=== PATIENT | female | born 1990 | race Caucasian/White ===

== ENCOUNTER 2025-10-13 09:52 | Inpatient (IN) | payer BC ==
[2025-10-13] VITALS (39 sets, daily range): BP systolic 67–117; BP diastolic 34–76; TEMP 98.5–98.7; O2SAT 92–100
[~2025-10-13] VITALS: Ht 170.2 cm; Wt 101.6 kg
[2025-10-13] MEDS ORDERED: ONDANSETRON HCL/PF 4 MG/2 ML VIAL ONE (09:57)
[2025-10-13] MEDS: IV NS 0.9% 1,000 ML BAG IV ONE ×2 (10:14→12:36)
[2025-10-13 10:48] LABS: ABG BASE EXCESS -6.1 mmol/L (-2.0-3.0); ABG OXYGEN SATURATION 89.2 % (94.0-98.0); ABG PCO2 60.5 mmHg (32.0-45.0); ABG PH 7.186 (7.350-7.450); ABG PO2 65.5 mmHg (83.0-108.0); ABG TOTAL HEMOGLOBIN 9.7 G/dL (12.0-16.0); FRACTIONATED INSPIRED OXYGEN 100.0 %; PEEP,BG 5 cm H2O; SET RATE, BG 26.0; SITE, ABG RIGHT RADIAL; VT, ABG 500 mL
[2025-10-13 11:13] LABS: PLATELET COUNT (AUTO) 238 K/uL (150-450); RED BLOOD CELL COUNT(AUTO) 4.04 MIL/uL (4.0-5.2); RED CELL DISTRIBUTION WIDTH 17.7 % (11.5-15.0); WHITE BLOOD COUNT (AUTO) 14.7 K/uL (4.3-11.0)
[2025-10-13] MEDS ORDERED: NOREPINEPHRINE 8MG/250ML RTU 250 ML IV ONE ×2 (11:17→14:48)
[2025-10-13 11:23] LABS: SERUM AMMONIA 12 umol/L (11-32)
[2025-10-13 11:25] LABS: CALCIUM, SERUM 7.6 mg/dL (8.5-10.1); CREATININE 1.3 mg/dL (0.6-1.3); SODIUM SERUM 142 mmol/L (136-145); UREA NITROGEN, BLOOD 15 mg/dL (7-18)
[2025-10-13 11:31] LABS: ASPARTATE AMINOTRANSFERASE 36 U/L (15-37); TOTAL PROTEIN, SERUM 6.4 g/dL (6.4-8.2)
[2025-10-13 11:32] LABS: ALCOHOL, BLOOD < 3 mg/dL (0-10)
[2025-10-13] MEDS: NOREPINEPHRINE 8 MG in IV NS 0.9% 242 ML IV PRN ×2 (11:39→15:45)
[2025-10-13 12:16] LABS: APPEARANCE,URINE CLEAR (CLEAR); BLOOD, URINE 3+ Ery/uL (NEGATIVE); LEUKOCYTE ESTERASE ,URINE NEGATIVE (NEGATIVE); NITRITE, URINE NEGATIVE (NEGATIVE); UGLUCOSE NEGATIVE (NEGATIVE)
[2025-10-13 12:18] LABS: PREGNANCY TEST URINE QUAL NEGATIVE (NEGATIVE)
[2025-10-13 12:19] LABS: ADD URINE CULTURE NO; SQUAMOUS EPITHELIAL CELL,UR Few /HPF (None Seen)
[2025-10-13 12:20] LABS: AMPHETAMINE, URINE NEGATIVE (NEGATIVE); BARBITURATE, URINE NEGATIVE (NEGATIVE); CANNABINOID, URINE NEGATIVE (NEGATIVE); COCCAINE, URINE NEGATIVE (NEGATIVE); OPIATE, URINE NEGATIVE (NEGATIVE)
[2025-10-13 12:30] LABS: BENZODIAZEPINE, URINE POSITIVE (NEGATIVE)
[2025-10-13 12:51] LABS: ABG BASE EXCESS -9.7 mmol/L (-2.0-3.0); ABG PCO2 37.9 mmHg (32.0-45.0); ABG PH 7.260 (7.350-7.450); ABG PO2 62.8 mmHg (83.0-108.0); ABG TOTAL HEMOGLOBIN 10.5 G/dL (12.0-16.0); FRACTIONATED INSPIRED OXYGEN 100.0 %; SET RATE, BG 26.0; SITE, ABG LEFT RADIAL; VT, ABG 500 mL
[2025-10-13] MEDS: NS 0.9% IV PRN (13:45)
[2025-10-13] MEDS: NALOXONE HCL IV PRN (13:45)
[2025-10-13] MEDS ORDERED: IV D5/0.45 NACL 1,000 ML IV PRN (14:00)
[2025-10-13] MEDS ORDERED: Z GUARD REMEDY 4 OZ OINT TP PRN (14:00)
[2025-10-13] MEDS ORDERED: MAG HYDROX/AL HYDROX/SIMETH 30 ML UDC PO PRN (14:00)
[2025-10-13] MEDS ORDERED: MAGNESIUM HYDROXIDE 30 ML UDC PO PRN (14:00)
[2025-10-13] MEDS ORDERED: ZOLPIDEM TARTRATE 5 MG TABLET PO PRN (14:00)
[2025-10-13] MEDS ORDERED: PIPERACILLIN /TAZOBACTAM 3.375 G in IV D5W 50 ML IV SCH (14:00)
[2025-10-13] MEDS ORDERED: PROPOFOL 100 ML ONE (14:49)
[2025-10-13] MEDS ORDERED: PROPOFOL 100 ML IV PRN (15:00)
[2025-10-13] MEDS: SODIUM ZIRCONIUM CYCLOSILICATE 10 GM POWD.PACK PO ONE (15:41)
[2025-10-13] MEDS: ENOXAPARIN SODIUM 40 MG/0.4 ML DISP.SYRIN SQ SCH (15:43)
[2025-10-13] MEDS: IV D5/ 0.9% NACL 1,000 ML IV PRN (16:15)
[2025-10-13] MEDS: PROPOFOL 100 ML IV PRN (16:32)
[2025-10-13] MEDS: ZOSYN IVPB 3.375 G in IV D5W 50ml IV SCH (17:55)
[2025-10-13 20:28] LABS: CALCIUM, SERUM 7.8 mg/dL (8.5-10.1); CREATININE 1.4 mg/dL (0.6-1.3); SODIUM SERUM 143.0 mmol/L (136-145); UREA NITROGEN, BLOOD 17.0 mg/dL (7-18)
[2025-10-14] VITALS (50 sets, daily range): BP systolic 75–124; BP diastolic 51–73; TEMP 97.9–100.1; O2SAT 90–100
[2025-10-14 05:22] LABS: PLATELET COUNT (AUTO) 251 K/uL (150-450); RED BLOOD CELL COUNT(AUTO) 3.55 MIL/uL (4.0-5.2); RED CELL DISTRIBUTION WIDTH 17.0 % (11.5-15.0); WHITE BLOOD COUNT (AUTO) 18.0 K/uL (4.3-11.0)
[2025-10-14 05:36] LABS: CALCIUM, SERUM 7.4 mg/dL (8.5-10.1); CREATININE 1.4 mg/dL (0.6-1.3); PHOSPHORUS 1.5 mg/dL (2.5-4.9); SODIUM SERUM 143.0 mmol/L (136-145); UREA NITROGEN, BLOOD 15.0 mg/dL (7-18)
[2025-10-14] MEDS: ACETAMINOPHEN 325 MG TABLET PO PRN (07:36)
[2025-10-14] MEDS: PANTOPRAZOLE 40 MG VIAL IV SCH (09:31)
[2025-10-14 10:09] LABS: ABG BASE EXCESS -3.9 mmol/L (-2.0-3.0); ABG OXYGEN SATURATION 97.9 % (94.0-98.0); ABG PCO2 32.8 mmHg (32.0-45.0); ABG PH 7.407 (7.350-7.450); ABG PO2 111.2 mmHg (83.0-108.0); ABG TOTAL HEMOGLOBIN 8.7 G/dL (12.0-16.0); FRACTIONATED INSPIRED OXYGEN 40.0 %; PEEP,BG 5 cm H2O; SET RATE, BG 4.0; SITE, ABG RIGHT RADIAL
[2025-10-14] MEDS: Sodium Phosphate 15 MMOL in IV NS 0.9% 245 ML IV ONE (15:34)
[2025-10-15] VITALS (24 sets, daily range): BP systolic 106–136; BP diastolic 57–81; TEMP 98–99.6; O2SAT 93–100
[2025-10-15 04:30] LABS: ABG BASE EXCESS -2.3 mmol/L (-2.0-3.0); ABG OXYGEN SATURATION 98.3 % (94.0-98.0); ABG PCO2 51.1 mmHg (32.0-45.0); ABG PH 7.294 (7.350-7.450); ABG PO2 130.7 mmHg (83.0-108.0); ABG TOTAL HEMOGLOBIN 8.5 G/dL (12.0-16.0); FLOW, BLOOD GAS 15.00 L/min (0.00-30.00); FRACTIONATED INSPIRED OXYGEN 100.0 %; SITE, ABG RIGHT RADIAL
[2025-10-15 05:15] LABS: PLATELET COUNT (AUTO) 181 K/uL (150-450); RED BLOOD CELL COUNT(AUTO) 3.31 MIL/uL (4.0-5.2); RED CELL DISTRIBUTION WIDTH 18.0 % (11.5-15.0); WHITE BLOOD COUNT (AUTO) 15.0 K/uL (4.3-11.0)
[2025-10-15 05:29] LABS: ASPARTATE AMINOTRANSFERASE 60.0 U/L (15-37); CALCIUM, SERUM 7.6 mg/dL (8.5-10.1); CREATININE 0.8 mg/dL (0.6-1.3); PHOSPHORUS 3.1 mg/dL (2.5-4.9); SODIUM SERUM 140.0 mmol/L (136-145); TOTAL PROTEIN, SERUM 5.9 g/dL (6.4-8.2); UREA NITROGEN, BLOOD 10.0 mg/dL (7-18)
[2025-10-15 05:56] LABS: ABG BASE EXCESS -4.3 mmol/L (-2.0-3.0); ABG OXYGEN SATURATION 93.9 % (94.0-98.0); ABG PCO2 41.0 mmHg (32.0-45.0); ABG PH 7.332 (7.350-7.450); ABG PO2 74.1 mmHg (83.0-108.0); ABG TOTAL HEMOGLOBIN 8.2 G/dL (12.0-16.0); FRACTIONATED INSPIRED OXYGEN 50.0 %; SET RATE, BG 24.0; SITE, ABG RIGHT RADIAL
[2025-10-15] MEDS: POTASSIUM CL. PREMIX PERIPHER. 50 ML IV SCH (09:43)
[2025-10-16] VITALS (31 sets, daily range): BP systolic 112–137; BP diastolic 59–87; TEMP 98–99.8; O2SAT 89–99
[2025-10-16 04:38] LABS: PLATELET COUNT (AUTO) 165 K/uL (150-450); RED BLOOD CELL COUNT(AUTO) 2.88 MIL/uL (4.0-5.2); RED CELL DISTRIBUTION WIDTH 17.8 % (11.5-15.0); WHITE BLOOD COUNT (AUTO) 10.9 K/uL (4.3-11.0)
[2025-10-16 04:42] LABS: CALCIUM, SERUM 8.2 mg/dL (8.5-10.1); CREATININE 0.7 mg/dL (0.6-1.3); PHOSPHORUS 2.1 mg/dL (2.5-4.9); SODIUM SERUM 147.0 mmol/L (136-145); UREA NITROGEN, BLOOD 12.0 mg/dL (7-18)
[2025-10-16 05:14] LABS: LYMPHOCYTES % (MANUAL) 10 % (16-48); MONOCYTES % (MANUAL) 4 % (0-11.0); NEUTROPHILS % (MANUAL) 86 (42-76); PLATELET ESTIMATE ADEQUATE
[2025-10-16 06:14] LABS: ASPARTATE AMINOTRANSFERASE 31.0 U/L (15-37); TOTAL PROTEIN, SERUM 5.9 g/dL (6.4-8.2)
[2025-10-16] MEDS: IV D5/0.45 NACL 1,000 ML IV PRN (07:41)
[2025-10-16] MEDS: Sodium Phosphate 15 MMOL in IV NS 0.9% 245 ML IV SCH (16:59)
[2025-10-17] VITALS (24 sets, daily range): BP systolic 96–142; BP diastolic 46–94; TEMP 97.9–99.8; O2SAT 75–100
[2025-10-17 04:16] LABS: PLATELET COUNT (AUTO) 183 K/uL (150-450); RED BLOOD CELL COUNT(AUTO) 3.02 MIL/uL (4.0-5.2); RED CELL DISTRIBUTION WIDTH 18.2 % (11.5-15.0); WHITE BLOOD COUNT (AUTO) 10.4 K/uL (4.3-11.0)
[2025-10-17 04:22] LABS: CALCIUM, SERUM 8.1 mg/dL (8.5-10.1); CREATININE 0.7 mg/dL (0.6-1.3); PHOSPHORUS 2.7 mg/dL (2.5-4.9); UREA NITROGEN, BLOOD 13.0 mg/dL (7-18)
[2025-10-17 04:28] LABS: SODIUM SERUM 147.0 mmol/L (136-145)
[2025-10-17] MEDS: POTASSIUM CL. PREMIX PERIPHER. 50 ML IV SCH (07:31)
[2025-10-17] MEDS: ONDANSETRON HCL/PF 4 MG/2 ML VIAL IVP PRN (08:47)
[2025-10-17 10:12] LABS: PTH, INTACT 84 pg/mL (15-65)
[2025-10-17] MEDS: SALINE NASAL SPRAY 0.65% 1 BOTTLE BOTTLE NS PRN (10:46)
[2025-10-17] MEDS ORDERED: ACETYLCYSTEINE 10% SOLN 400 MG/4 ML VIAL NEB PRN (12:30)
[2025-10-17] MEDS: PIPERACILLIN /TAZOBACTAM 3.375 G in IV D5W 100 ML IV SCH (15:29)
[2025-10-18] VITALS (30 sets, daily range): BP systolic 115–142; BP diastolic 54–92; TEMP 99.2–102.4; O2SAT 85–100
[2025-10-18] MEDS: ACETAMINOPHEN 650 MG/SUPP.RECT RC PRN
[2025-10-18 07:51] LABS: PLATELET COUNT (AUTO) 201 K/uL (150-450); RED BLOOD CELL COUNT(AUTO) 3.02 MIL/uL (4.0-5.2); RED CELL DISTRIBUTION WIDTH 17.9 % (11.5-15.0); WHITE BLOOD COUNT (AUTO) 9.1 K/uL (4.3-11.0)
[2025-10-18 07:57] LABS: ABG BASE EXCESS -1.4 mmol/L (-2.0-3.0); ABG OXYGEN SATURATION 99.7 % (94.0-98.0); ABG PCO2 36.3 mmHg (32.0-45.0); ABG PH 7.418 (7.350-7.450); ABG PO2 347.3 mmHg (83.0-108.0); ABG TOTAL HEMOGLOBIN 8.3 G/dL (12.0-16.0); FRACTIONATED INSPIRED OXYGEN 100.0 %; SET RATE, BG 16.0
[2025-10-18 07:57] LABS: CALCIUM, SERUM 7.8 mg/dL (8.5-10.1); CREATININE 0.6 mg/dL (0.6-1.3); SODIUM SERUM 143.0 mmol/L (136-145); UREA NITROGEN, BLOOD 7.0 mg/dL (7-18)
[2025-10-18] MEDS: POTASSIUM CL. PREMIX PERIPHER. 50 ML IV SCH (10:09)
[2025-10-18] MEDS ORDERED: DOSING PER PHARMACY-VANCOMYCIN IV XX PRN (10:30)
[2025-10-18] MEDS ORDERED: VANCOMYCIN 1 GM in IV D5W 250 ML IV ONE (10:30)
[2025-10-18] MEDS: PROSOURCE / PROSTAT (PYXIS) 30 ML UDC PO SCH (11:30)
[2025-10-18] MEDS: VANCOMYCIN 1.5 GM in IV D5W 500 ML IV ONE (11:56)
[2025-10-18 14:12] LABS: *SPE A/G RATIO 0.8 (0.7-1.7); *SPE ALBUMIN 2.4 g/dL (2.9-4.4); *SPE ALPHA-1-GLOBULIN 0.5 g/dL (0.0-0.4); *SPE ALPHA-2-GLOBULIN 0.7 g/dL (0.4-1.0); *SPE BETA GLOBULIN 0.9 g/dL (0.7-1.3); *SPE GLOBULIN, TOTAL 2.9 g/dL (2.2-3.9); *SPE M-SPIKE Not Observed g/dL (Not Observed); *SPE PROTEIN TOTAL 5.3 g/dL (6.0-8.5); *SPEGAMMA GLOBULIN 0.8 g/dL (0.4-1.8)
[2025-10-18] MEDS: VANCOMYCIN HCL 1.25 GM in IV D5W 250 ML IV SCH (19:38)
[2025-10-19] VITALS (73 sets, daily range): BP systolic 48–157; BP diastolic 18–106; TEMP 98.2–101.5; O2SAT 83–100
[2025-10-19 01:55] LABS: ABG BASE EXCESS 2.1 mmol/L (-2.0-3.0); ABG OXYGEN SATURATION 88.2 % (94.0-98.0); ABG PCO2 45.5 mmHg (32.0-45.0); ABG PH 7.395 (7.350-7.450); ABG PO2 59.1 mmHg (83.0-108.0); ABG TOTAL HEMOGLOBIN 8.5 G/dL (12.0-16.0); FLOW, BLOOD GAS 40.00 L/min (0.00-30.00); FRACTIONATED INSPIRED OXYGEN 100.0 %; SITE, ABG RIGHT RADIAL
[2025-10-19 04:32] LABS: PLATELET COUNT (AUTO) 245 K/uL (150-450); RED BLOOD CELL COUNT(AUTO) 3.26 MIL/uL (4.0-5.2); RED CELL DISTRIBUTION WIDTH 18.3 % (11.5-15.0); WHITE BLOOD COUNT (AUTO) 15.7 K/uL (4.3-11.0)
[2025-10-19 04:41] LABS: CALCIUM, SERUM 8.1 mg/dL (8.5-10.1); CREATININE 0.6 mg/dL (0.6-1.3); PHOSPHORUS 3.4 mg/dL (2.5-4.9); SODIUM SERUM 143.0 mmol/L (136-145); UREA NITROGEN, BLOOD 6.0 mg/dL (7-18)
[2025-10-19] MEDS: PROPOFOL 100 ML IV PRN (08:48)
[2025-10-19 08:56] LABS: ABG BASE EXCESS -0.4 mmol/L (-2.0-3.0); ABG OXYGEN SATURATION 92.4 % (94.0-98.0); ABG PCO2 52.5 mmHg (32.0-45.0); ABG PH 7.315 (7.350-7.450); ABG PO2 74.5 mmHg (83.0-108.0); ABG TOTAL HEMOGLOBIN 9.6 G/dL (12.0-16.0); FRACTIONATED INSPIRED OXYGEN 100.0 %; PEEP,BG 5 cm H2O; SET RATE, BG 20.0; SITE, ABG RIGHT RADIAL; VT, ABG 475 mL
[2025-10-19] MEDS: IV D5/ 0.9% NACL 1,000 ML IV PRN (10:16)
[2025-10-19] MEDS: POTASSIUM CL. PREMIX PERIPHER. 50 ML IV SCH (10:38)
[2025-10-19] MEDS ORDERED: AZITHROMYCIN 500 MG in IV D5W 250 ML IV SCH (12:00)
[2025-10-19] MEDS: PHENYLEPHRINE 50 MG in IV NS 0.9% 245 ML IV PRN (14:06)
[2025-10-19] MEDS: MIDAZOLAM HCL 100 MG in IV NS 0.9% 80 ML IV PRN ×2 (14:21→18:42)
[2025-10-19] MEDS ORDERED: ROCURONIUM BROMIDE 50 MG/5 ML IV ONE (14:24)
[2025-10-19] MEDS ORDERED: ETOMIDATE 2 MG/ML VIAL IV ONE (14:24)
[2025-10-19] MEDS ORDERED: ATROPINE SULFATE 1 MG/10 ML DISP.SYRIN IV ONE (14:24)
[2025-10-19] MEDS: FENTANYL CITRAT IV 2,500 MCG in IV NS 0.9% 200 ML IV PRN ×2 (14:27→15:00)
[2025-10-19] MEDS: MEROPENEM 1 G in IV NS 0.9% 100 ML IV SCH (15:45)
[2025-10-19] MEDS: AZITHROMYCIN 250 MG TABLET GT SCH (15:52)
[2025-10-19] MEDS: NOREPINEPHRINE 32 MG in IV NS 0.9% 218 ML IV PRN (16:13)
[2025-10-19] MEDS: LORAZEPAM INJ 2 MG/ML VIAL IV PRN (17:22)
[2025-10-19] MEDS: PHENYLEPHRINE 100 MG in IV NS 0.9% 240 ML IV PRN (18:50)
[2025-10-19 18:53] LABS: ABG BASE EXCESS -10.1 mmol/L (-2.0-3.0); ABG OXYGEN SATURATION 69.5 % (94.0-98.0); ABG PCO2 40.7 mmHg (32.0-45.0); ABG PH 7.231 (7.350-7.450); ABG PO2 45.6 mmHg (83.0-108.0); ABG TOTAL HEMOGLOBIN 8.8 G/dL (12.0-16.0); FRACTIONATED INSPIRED OXYGEN 100.0 %; PEEP,BG 8 cm H2O; SET RATE, BG 20.0; SITE, ABG RIGHT RADIAL; VT, ABG 475 mL
[2025-10-19] MEDS: VASOPRESSIN INJ 20 UNIT/ML VIAL ONE (22:19)
[2025-10-19] MEDS: VASOPRESSIN INJ 40 UNIT in IV NS 0.9% 38 ML IV PRN (22:23)
[2025-10-20] VITALS (94 sets, daily range): BP systolic 45–109; BP diastolic 13–69; TEMP 103–106; O2SAT 85–99
[2025-10-20] MEDS: DEXTROSE 50%-WATER 50 ML DISP.SYRIN IVP ONE ×2 (00:13→03:21)
[2025-10-20] MEDS: BLOOD SUGAR DIAGNOSTIC 1 EACH STRIP IN PRN (03:27)
[2025-10-20 03:43] LABS: CALCIUM, SERUM 6.8 mg/dL (8.5-10.1); CREATININE 3.1 mg/dL (0.6-1.3); PHOSPHORUS 5.8 mg/dL (2.5-4.9); SODIUM SERUM 145.0 mmol/L (136-145); UREA NITROGEN, BLOOD 21.0 mg/dL (7-18)
[2025-10-20] MEDS: IV 10% DEXTROSE 1,000 ML IV PRN (06:38)
[2025-10-20 08:49] LABS: ABG BASE EXCESS -13.8 mmol/L (-2.0-3.0); ABG OXYGEN SATURATION 67.4 % (94.0-98.0); ABG PCO2 32.7 mmHg (32.0-45.0); ABG PH 7.211 (7.350-7.450); ABG PO2 45.2 mmHg (83.0-108.0); ABG TOTAL HEMOGLOBIN 7.2 G/dL (12.0-16.0); FRACTIONATED INSPIRED OXYGEN 100.0 %; PEEP,BG 8 cm H2O; SET RATE, BG 20.0; SITE, ABG VBG - N/A; VT, ABG 475 mL
[2025-10-20] MEDS ORDERED: VANCOMYCIN 1 GM in IV D5W 250ml IV SCH (09:00)
[2025-10-20] MEDS: HYDROCORTISONE SOD SUCCINATE 100 MG/2 ML VIAL IV SCH (10:21)
[2025-10-20 11:49] LABS: HIV-1/2 ANTIBODY NON REACTIVE (NONREACTIVE)
[2025-10-20] MEDS: Sodium Bicarbonate 100 MEQ in IV 1/2NS 1000 ML 1,000 ML IV SCH (12:34)
[2025-10-20 12:57] LABS: CREATININE 3.9 mg/dL (0.6-1.3); SODIUM SERUM 144.0 mmol/L (136-145); UREA NITROGEN, BLOOD 21.0 mg/dL (7-18)
[2025-10-20 13:07] LABS: CALCIUM, SERUM 5.6 mg/dL (8.5-10.1)
[2025-10-20] MEDS: DEXTROSE 50%-WATER 50 ML DISP.SYRIN ONE (13:57)
[2025-10-20] MEDS ORDERED: DEXTROSE 50%-WATER 50 ML DISP.SYRIN IVP PRN (14:00)
[2025-10-20] MEDS: MEROPENEM IV SCH (16:48)
[2025-10-20] MEDS: NS 0.9% IV SCH (16:48)
[2025-10-20] MEDS ORDERED: ACETAMINOPHEN 650 MG/20.3 ML UDC ONE (16:55)
[2025-10-20] MEDS: ACETAMINOPHEN 650 MG/20.3 ML UDC GT PRN (18:02)
[2025-10-20] MEDS: BLOOD SUGAR DIAGNOSTIC 1 EACH STRIP IN SCH (18:11)
[2025-10-20] MEDS: DEXTROSE 50%-WATER 50 ML DISP.SYRIN IV PRN (20:46)
[2025-10-20] MEDS ORDERED: DEXTROSE 50%-WATER 50 ML DISP.SYRIN IV PRN (22:30)
[2025-10-21] VITALS (35 sets, daily range): BP systolic 45–91; BP diastolic 12–56; TEMP 103.2–104; O2SAT 74–94
[2025-10-21 03:07] LABS: HEPATITIS B CORE AB, TOTAL Negative (Negative)
[2025-10-21 04:54] LABS: PLATELET COUNT (AUTO) 298 K/uL (150-450); RED BLOOD CELL COUNT(AUTO) 3.32 MIL/uL (4.0-5.2); RED CELL DISTRIBUTION WIDTH 19.1 % (11.5-15.0); WHITE BLOOD COUNT (AUTO) 23.9 K/uL (4.3-11.0)
[2025-10-21 05:10] LABS: CREATININE 5.3 mg/dL (0.6-1.3); PHOSPHORUS 7.6 mg/dL (2.5-4.9); SODIUM SERUM 145.0 mmol/L (136-145); UREA NITROGEN, BLOOD 29.0 mg/dL (7-18)
[2025-10-21 05:20] LABS: CALCIUM, SERUM 5.2 mg/dL (8.5-10.1)
[2025-10-21] MEDS: VANCOMYCIN HCL 1.25 GM in IV D5W 250 ML IV SCH (05:27)
[2025-10-21 06:03] LABS: BAND % (MANUAL) 1 % (0.0-5.0); LYMPHOCYTES % (MANUAL) 7 % (16-48); MONOCYTES % (MANUAL) 3 % (0-11.0); NEUTROPHILS % (MANUAL) 89 (42-76); NUCLEATED RED BLOOD CELLS 4.0 /100WBC (0.0-0.0); PLATELET ESTIMATE ADEQUATE
[2025-10-21] MEDS ORDERED: MEROPENEM 500 MG VIAL IV ONE (09:49)
== END 2025-10-21 09:50 | DRG 917 ==
LOC: ER 10:01 → ICU 15:02
PROVIDERS: ADMIT Student in an Organized Health Care Education/Training Program; ATTEND Student in an Organized Health Care Education/Training Program
PROC: 02HV33Z Insertion of Infusion Device into Superior Vena Cava, Percutaneous Approach (ICD-10-PCS; principal; 2025-10-13)
PROC: 5A1935Z Respiratory Ventilation, Less than 24 Consecutive Hours (ICD-10-PCS; 2025-10-13)
PROC: 0BH17EZ Insertion of Endotracheal Airway into Trachea, Via Natural or Artificial Opening (ICD-10-PCS; 2025-10-13)
PROC: 5A09557 Assistance with Respiratory Ventilation, Greater than 96 Consecutive Hours, Continuous Positive Airway Pressure (ICD-10-PCS; 2025-10-15)
PROC: 30233N1 Transfusion of Nonautologous Red Blood Cells into Peripheral Vein, Percutaneous Approach (ICD-10-PCS; 2025-10-16)
PROC: 5A1945Z Respiratory Ventilation, 24-96 Consecutive Hours (ICD-10-PCS; 2025-10-19)
PROC: 0BH17EZ Insertion of Endotracheal Airway into Trachea, Via Natural or Artificial Opening (ICD-10-PCS; 2025-10-19)
PROC: 02HV33Z Insertion of Infusion Device into Superior Vena Cava, Percutaneous Approach (ICD-10-PCS; 2025-10-19)
DX: T40.411A Poisoning by fentanyl or fentanyl analogs, accidental (unintentional), initial encounter (principal); A41.9 Sepsis, unspecified organism; J69.0 Pneumonitis due to inhalation of food and vomit; J96.01 Acute respiratory failure with hypoxia; J96.02 Acute respiratory failure with hypercapnia; R65.21 Severe sepsis with septic shock; N17.0 Acute kidney failure with tubular necrosis; E44.0 Moderate protein-calorie malnutrition; E87.0 Hyperosmolality and hypernatremia; E83.39 Other disorders of phosphorus metabolism; Z79.01 Long term (current) use of anticoagulants; I46.9 Cardiac arrest, cause unspecified; E66.9 Obesity, unspecified; D50.9 Iron deficiency anemia, unspecified; E87.20 Acidosis, unspecified; Z66 Do not resuscitate; T42.4X1A Poisoning by benzodiazepines, accidental (unintentional), initial encounter; Y92.9 Unspecified place or not applicable; E87.5 Hyperkalemia; Z79.899 Other long term (current) drug therapy; Z68.32 Body mass index [BMI] 32.0-32.9, adult; E83.51 Hypocalcemia; M89.8X9 Other specified disorders of bone, unspecified site; E87.6 Hypokalemia; Z51.5 Encounter for palliative care; Z72.0 Tobacco use
CPT/HCPCS: 31720; 36415; 36600; 70450-TC; 71045-TC; 72125-TC; 76770-TC; 80048-TC; 80053-TC; 80076-TC; 80202-TC; 81001; 82140-TC; 82550-TC; 82553; 82803-TC; 82947-TC; 82962-TC; 83010; 83615-TC; 83735-TC; 83970; 84100-TC; 84155; 84165; 84443-TC; 84478-TC; 84703-TC; 85025-TC; 85027-TC; 86704; 86803; 86850-TC; 87040-TC; 87070-TC; 87081-TC; 87086-TC; 87205-TC; 87340; 87806; 92526; 92611; 92950-TC; 94002-TC; 94003-TC; 94799-TC; 97110-TC; 97116-TC; 97530-TC; 99082-TC; A4217; A4223; A9563; G0378; G0480; J0461; J1650; J1720; J2060; J2185; J2250; J2312; J2405; J2470; J2543; J3010; J3374; J3480; J3490; J7030; J7042; J7050; J7060; P9016